=== PATIENT | female | born 1970 | race Caucasian/White ===

== ENCOUNTER → 2023-12-03 09:43 | Outpatient (REF) | payer OTHER, SELFPAY | LOC: REG 09:43 | PROVIDERS: ATTENDING PHYSICIAN Specialist; FAMILY PHYSICIAN Nurse Practitioner Primary Care | DX: M76.62 Achilles tendinitis, left leg (principal); M25.472 Effusion, left ankle; N20.0 Calculus of kidney | CPT/HCPCS: 73610; 74018 ==

== ENCOUNTER → 2024-01-23 14:12 | Outpatient (REF) | payer OTHER, SELFPAY | LOC: WDC 14:12 | PROVIDERS: ATTENDING PHYSICIAN Nurse Practitioner Primary Care | DX: Z12.31 Encounter for screening mammogram for malignant neoplasm of breast (principal) | CPT/HCPCS: 77063; 77067 ==